=== PATIENT | male | born 1985 | race Caucasian/White ===

== ENCOUNTER 2019-02-21 03:48 | Emergency (ER) | payer BC | END 2019-02-21 05:17 | disposition home or self-care (01) | LOC: ERS 03:48 | DX: J11.1 Influenza due to unidentified influenza virus with other respiratory manifestations (principal); F17.210 Nicotine dependence, cigarettes, uncomplicated | CPT/HCPCS: 87804; 99283 ==

== ENCOUNTER 2020-12-06 14:30 | Day surgery (SDC) | payer SELFPAY ==
[2020-12-06] MEDS ORDERED: PROPOFOL 0 ML ONE (15:08)
[2020-12-06] MEDS ORDERED: PROPOFOL 20 ML ONE (15:18)
== END 2020-12-06 16:00 | disposition home or self-care (01) ==
LOC: ERS 14:30 → SDC/OP 15:00
PROVIDERS: ATTEND Orthopaedic Surgery
PROC: 0RSJXZZ Reposition Right Shoulder Joint, External Approach (ICD-10-PCS; principal; 2020-12-06)
DX: M24.411 Recurrent dislocation, right shoulder (principal); S43.084A Other dislocation of right shoulder joint, initial encounter; Z98.890 Other specified postprocedural states; X58.XXXA Exposure to other specified factors, initial encounter
CPT/HCPCS: J2704